=== PATIENT | male | born 1990 | race Two or more races ===

== ENCOUNTER 2019-12-27 15:15 | Outpatient (CLI) | payer OTHER ==
[~2019-12-27 15:15] MED LIST: CIPRO HC OTIC S10 ML OT; IOPHEN DM-100 MG/5 M PO
== END 2019-12-27 15:26 | disposition home or self-care (01) ==
LOC: LAB 15:15
DX: Z20.828 Contact with and (suspected) exposure to other viral communicable diseases (principal)

== ENCOUNTER 2020-12-24 08:00 | Outpatient (CLI) | payer OTHER ==
[2021-01-25] MEDS ORDERED: INTESTINEX680 M1 PO (21:36)
[2021-01-25] MEDS ORDERED: METRONIDAZOLE500 MG PO (21:36)
[2021-01-25] MEDS ORDERED: CIPRO500 MG PO (21:36)
[2021-01-25] MEDS ORDERED: PERCOCET 5-3251 EACH PO (21:39)
== END 2020-12-24 08:30 | disposition home or self-care (01) ==
LOC: PPH VACUNA 08:00
PROVIDERS: ATTEND Emergency Medicine Pediatric Emergency Medicine
DX: Z23 Encounter for immunization (principal)

== ENCOUNTER 2021-01-19 13:22 | Outpatient (CLI) | payer OTHER | END 2021-01-19 14:00 | disposition home or self-care (01) | LOC: LAB 13:22 | PROVIDERS: ATTEND General Practice | DX: D10.1 Benign neoplasm of tongue (principal); Z20.822 Contact with and (suspected) exposure to COVID-19 ==

== ENCOUNTER 2021-01-25 11:44 | Emergency (ER) | payer OTHER ==
[~2021-01-25] VITALS: Ht 162.6 cm; Wt 140.6 kg
[2021-01-25] MEDS ORDERED: INTESTINEX680 M1 PO ×2 (21:36)
[2021-01-25] MEDS ORDERED: CIPRO500 MG PO ×2 (21:36)
[2021-01-25] MEDS ORDERED: METRONIDAZOLE500 MG PO ×2 (21:36)
[2021-01-25] MEDS ORDERED: PERCOCET 5-3251 EACH PO ×2 (21:39)
== END 2021-01-25 21:55 | disposition home or self-care (01) ==
LOC: ER 11:44
DX: K57.32 Diverticulitis of large intestine without perforation or abscess without bleeding (principal); K76.0 Fatty (change of) liver, not elsewhere classified; K58.8 Other irritable bowel syndrome; K21.9 Gastro-esophageal reflux disease without esophagitis; E11.9 Type 2 diabetes mellitus without complications; R10.13 Epigastric pain; G47.33 Obstructive sleep apnea (adult) (pediatric); E66.8 Other obesity

== ENCOUNTER 2021-01-28 08:12 | Inpatient (IN) | payer OTHER ==
[~2021-01-28] VITALS: Ht 160 cm; Wt 310.0 kg
[~2021-01-28 08:12] MED LIST changes: +CIPRO500 MG PO; +INTESTINEX680 M1 PO; +METRONIDAZOLE500 MG PO; +PERCOCET 5-3251 EACH PO
[2021-02-02] MEDS ORDERED: INTESTINEX680 M1 PO (11:55)
[2021-02-02] MEDS ORDERED: PEPCID AC20 MG PO (11:55)
[2021-02-02] MEDS ORDERED: AMOX-CLAV 875-1 EACH PO (11:55)
== END 2021-02-02 13:37 | disposition home or self-care (01) | DRG 392 ==
LOC: ER 08:12 → SURG 17:56
PROVIDERS: ADMIT Internal Medicine; ATTEND Internal Medicine
PROC: 02HV33Z Insertion of Infusion Device into Superior Vena Cava, Percutaneous Approach (ICD-10-PCS; principal; 2021-01-28)
DX: K57.32 Diverticulitis of large intestine without perforation or abscess without bleeding (principal); R10.32 Left lower quadrant pain; E11.9 Type 2 diabetes mellitus without complications; Z79.4 Long term (current) use of insulin; Z20.822 Contact with and (suspected) exposure to COVID-19; G47.33 Obstructive sleep apnea (adult) (pediatric); E66.01 Morbid (severe) obesity due to excess calories; Z99.89 Dependence on other enabling machines and devices

== ENCOUNTER 2021-03-16 19:17 | Outpatient (CLI) | payer OTHER ==
[~2021-03-16 19:17] MED LIST changes: +AMOX-CLAV 875-1 EACH PO; +PEPCID AC20 MG PO
== END 2021-03-16 23:00 | disposition home or self-care (01) ==
LOC: LAB 19:17
DX: Z03.818 Encounter for observation for suspected exposure to other biological agents ruled out (principal)

== ENCOUNTER 2022-03-14 18:26 | Emergency (ER) | payer OTHER ==
[~2022-03-14] VITALS: Ht 160 cm; Wt 141.5 kg
[2022-03-14] MEDS ORDERED: OMEPRAZOLE20 M1 PO (22:10)
[2022-03-14] MEDS ORDERED: METRONIDAZOLE500 MG PO (22:10)
[2022-03-14] MEDS ORDERED: LEVSIN/SL0.125 MG SL (22:10)
[2022-03-14] MEDS ORDERED: CIPRO500 MG PO (22:10)
== END 2022-03-14 22:52 | disposition home or self-care (01) ==
LOC: ER 18:26
DX: K57.32 Diverticulitis of large intestine without perforation or abscess without bleeding (principal)

== ENCOUNTER 2023-02-22 09:01 | Outpatient (CLI) | payer OTHER ==
[2023-02-22 07:57] LABS: HEMATOCRIT 40.9 % (39.0-48.0); MEAN CORPUSCULAR HEMOGLOBIN 21.9 pg (27.00-32.0); MEAN CORPUSCULAR HGB CONC 31.8 g/dl (32.0-36.0); PLATELET COUNT 251 K/uL (150-450); RED BLOOD COUNT 5.95 M/uL (4.00-6.00); RED CELL DISTRIBUTION WIDTH 15.9 % (11.5-14.5)
[2023-02-22 07:58] LABS: MEAN CELL VOLUME 68.7 fL (80.0-100.00)
[2023-02-22 08:52] LABS: ALBUMIN 3.5 gm/dL (3.4-5.0); BILIRUBIN TOTAL 0.4 mg/dL (0.3-1.2); CALCIUM 8.8 mg/dL (8.5-10.1); CHOL HDL RATIO 3.9 (0-5.0); CREATININE SERUM 0.79 mg/dL (0.70-1.30); GFR 112.96; GLOBULINA 4.1 G/DL (2.4-3.5); POTASSIUM 4.19 mEq/L (3.5-5.1); TOTAL PROTEIN 7.6 gm/dL (6.4-8.2)
[~2023-02-22 09:01] MED LIST changes: +LEVSIN/SL0.125 MG SL; +OMEPRAZOLE20 M1 PO
[2023-02-22 11:57] LABS: VITAMIN D3 25 HYDROXY 20.32 ng/ml (30-120)
== END 2023-02-22 13:10 | disposition home or self-care (01) ==
LOC: LAB 09:01
DX: E11.65 Type 2 diabetes mellitus with hyperglycemia (principal); E78.2 Mixed hyperlipidemia; E55.9 Vitamin D deficiency, unspecified; E53.8 Deficiency of other specified B group vitamins

== ENCOUNTER 2024-04-19 12:02 | Outpatient (CLI) | payer OTHER | END 2024-04-19 13:14 | disposition home or self-care (01) | LOC: TOM 12:02 | PROVIDERS: ATTEND Otolaryngology Otology & Neurotology | DX: H93.11 Tinnitus, right ear (principal); H93.12 Tinnitus, left ear ==

== ENCOUNTER 2024-06-09 17:36 | Emergency (ER) | payer OTHER ==
[~2024-06-09] VITALS: Ht 157.5 cm; Wt 136.1 kg
[2024-06-09] MEDS ORDERED: METFORMIN HCL1000 M2 (17:45)
[2024-06-09] MEDS ORDERED: KETOROLAC TROMETHAMINE 60 MG VIAL IM ONE ×2 (18:25→18:30)
[2024-06-09] MEDS ORDERED: CEFTRIAXONE SODIUM 1,000 MG VIAL ONE (18:25)
[2024-06-09] MEDS ORDERED: CEFTRIAXONE SODIUM 1,000 MG VIAL IM ONE (18:30)
== END 2024-06-09 18:48 | disposition home or self-care (01) ==
LOC: ER 17:36
DX: S91.114A Laceration without foreign body of right lesser toe(s) without damage to nail, initial encounter (principal); W45.8XXA Other foreign body or object entering through skin, initial encounter; Y93.89 Activity, other specified; Y92.89 Other specified places as the place of occurrence of the external cause; Y99.9 Unspecified external cause status; E11.9 Type 2 diabetes mellitus without complications; Z79.84 Long term (current) use of oral hypoglycemic drugs

== ENCOUNTER 2024-11-05 02:27 | Emergency (ER) | payer OTHER ==
[~2024-11-05] VITALS: Ht 165.1 cm; Wt 124.7 kg
[~2024-11-05 02:27] MED LIST changes: +METFORMIN HCL1000 M2
[2024-11-05] MEDS ORDERED: KETOROLAC TROMETHAMINE 30 MG VIAL ONE (03:00)
[2024-11-05 03:15] LABS: BASO % 0.5 % (0.1-1.2); EOS # 0.17 (0.04-0.54); EOS % 2.0 % (0.7-7.0); LYMPH # 2.12 (1.18-3.74); LYMPH % 24.5 % (19.3-53.1); MEAN PLATELET VOLUME 9.20 fl (9.4-12.4); MONO # 0.84 (0.24-0.82); MONO % 9.7 % (4.7-12.5); NEUT # 5.49 (1.56-6.13); NEUT % 63.2 % (34.0-71.1); RED CELL DISTRIBUTION WIDTH 16.2 % (11.6-14.4)
[2024-11-05] MEDS ORDERED: KETOROLAC TROMETHAMINE 30 MG VIAL IV ONE ×2 (03:15)
[2024-11-05] MEDS ORDERED: NITROGLYCERIN 0.4 MG TAB.SUBL SL ONE (03:19)
[2024-11-05 03:22] LABS: URINE APPEARANCE Cloudy; URINE BILIRRUBIN Negative (NEGATIVE); URINE BLOOD Negative; URINE COLOR Yellow; URINE GLUCOSE Negative (NEGATIVE); URINE KETONE Trace (NEGATIVE); URINE LEUKOCYTE Negative; URINE NITRATE Negative; URINE PROTEIN Negative (NEGATIVE); URINE UROBILINOGEN 0.2 E.U./dl
[2024-11-05 03:26] LABS: URINE BACTERIA 11.9 uL (0.0-1933); URINE WBC 1.8 uL (0.0-23.2)
[2024-11-05 03:29] LABS: URINE CAST 0.00 uL (0.0-1.40); URINE EPITHELIAL CELLS 0.3 uL (0.0-38.8); URINE RBC 1.9 uL (0.0-20.8)
[2024-11-05 03:34] LABS: ALT/SGPT 25.0 U/L (12-78); AST/SGOT 18.0 U/L (15-37); BILIRUBIN TOTAL 0.47 mg/dL (0.3-1.2); BUN CREA RATIO 11.0 (7.0-25.0); CREATININE SERUM 0.99 mg/dL (0.70-1.30); GFR 86.53; GLOBULINA 4.4 G/DL (2.4-3.5); GLUCOSE FASTING 100.0 mg/dL (65-100); OSMOLALITY SERUM 277.0 MOSM/KG (275-295)
[2024-11-05] MEDS ORDERED: MORPHINE SULFATE 2 MG/ML SYRINGE IV ONE (06:15)
[2024-11-05] MEDS ORDERED: TRAMADOL HCL50 MG PO (09:02)
[2024-11-05] MEDS ORDERED: AMOX-CLAV 875-1 EACH PO (09:25)
== END 2024-11-05 10:33 | disposition home or self-care (01) ==
LOC: ER 02:27
PROVIDERS: Preventive Medicine Public Health & General Preventive Medicine
DX: R10.32 Left lower quadrant pain (principal); K57.32 Diverticulitis of large intestine without perforation or abscess without bleeding; G47.33 Obstructive sleep apnea (adult) (pediatric); E11.9 Type 2 diabetes mellitus without complications; Z79.84 Long term (current) use of oral hypoglycemic drugs; K57.30 Diverticulosis of large intestine without perforation or abscess without bleeding

== ENCOUNTER 2024-11-06 11:35 | Inpatient (IN) | payer OTHER ==
[~2024-11-06] VITALS: Ht 165.1 cm; Wt 122.5 kg
[~2024-11-06 11:35] MED LIST changes: +TRAMADOL HCL50 MG PO
--- NOTE | 2024-11-06 11:47 | NUR ---
PACIENTE MASCULINO, S/V EN PARAMETROS NORMALES, C/C DOLOR ABDOMINAL SE UBICA PARA SER EVALUADO.
[2024-11-06] MEDS ORDERED: FAMOTIDINE/PF 20 MG/2 ML VIAL IV ONE (12:30)
[2024-11-06] MEDS ORDERED: SODIUM CHLORIDE 0.45 % 1,000 ML IV ONE (12:30)
[2024-11-06] MEDS ORDERED: METRONIDAZOLE/SODIUM CHLORIDE 500 MG/100 ML PIGGYBACK IV ONE ×2 (12:30→12:51)
[2024-11-06] MEDS ORDERED: CIPROFLOXACIN IN 5 % DEXTROSE 400 MG/200 ML PIGGYBAG IV ONE ×2 (12:30→12:51)
[2024-11-06] MEDS ORDERED: ONDANSETRON HCL 2 MG/ML VIAL IV ONE (12:30)
[2024-11-06] MEDS ORDERED: MORPHINE SULFATE 2 MG/ML SYRINGE IV ONE ×2 (12:30→18:00)
--- NOTE | 2024-11-06 12:42 | NUR ---
SE ORIENTA PTE SOBRE TX MEDICO EL CUAL REFIERE ENTENDER.SE LE EXTRAEN MUESTRAS BAJO MEDIDAS ASEPTICAS,SE CANALIZA Y SE ADMINISTRA MEDICAMENTOS DEMETRIUS ORDEN MEDICA.
[2024-11-06] MEDS ORDERED: ONDANSETRON HCL 2 MG/ML VIAL ONE (12:51)
[2024-11-06] MEDS ORDERED: FAMOTIDINE/PF 20 MG/2 ML VIAL ONE (12:51)
[2024-11-06 13:00] LABS: BASO % 0.2 % (0.1-1.2); EOS # 0.08 (0.04-0.54); EOS % 0.6 % (0.7-7.0); LYMPH # 0.87 (1.18-3.74); LYMPH % 6.6 % (19.3-53.1); MEAN PLATELET VOLUME 9.20 fl (9.4-12.4); MONO # 0.92 (0.24-0.82); MONO % 7.0 % (4.7-12.5); NEUT # 11.22 (1.56-6.13); NEUT % 85.4 % (34.0-71.1); RED CELL DISTRIBUTION WIDTH 17.6 % (11.6-14.4)
[2024-11-06 13:05] LABS: ERYTHROCYTE SEDIMENTATION RATE 80 mm/hr (0-15)
[2024-11-06 13:42] LABS: ALT/SGPT 23.0 U/L (12-78); AST/SGOT 16.0 U/L (15-37); BILIRUBIN TOTAL 0.56 mg/dL (0.3-1.2); BUN CREA RATIO 9.0 (7.0-25.0); CREATININE SERUM 1.0 mg/dL (0.70-1.30); GFR 85.53; GLOBULINA 4.7 G/DL (2.4-3.5); GLUCOSE FASTING 93.0 mg/dL (65-100); OSMOLALITY SERUM 270.0 MOSM/KG (275-295)
[2024-11-06 14:04] LABS: URINE APPEARANCE Clear; URINE BILIRRUBIN Negative (NEGATIVE); URINE BLOOD Negative; URINE COLOR Yellow; URINE GLUCOSE Negative (NEGATIVE); URINE KETONE 15 (NEGATIVE); URINE LEUKOCYTE Negative; URINE NITRATE Negative; URINE PROTEIN Negative (NEGATIVE); URINE UROBILINOGEN 0.2 E.U./dl
[2024-11-06 14:07] LABS: URINE BACTERIA 4.8 uL (0.0-1933); URINE RBC 2.7 uL (0.0-20.8)
[2024-11-06] MEDS ORDERED: DIATRIZOATE MEGLUMINE, SODIUM 30 ML BOTTLE ONE (15:34)
[2024-11-06 15:51] LABS: URINE CAST 0.00 uL (0.0-1.40); URINE EPITHELIAL CELLS 0.4 uL (0.0-38.8); URINE WBC 1.6 uL (0.0-23.2)
[2024-11-06] MEDS ORDERED: RINGERS SOLUTION,LACTATED 1,000 ML IV STA (16:43)
[2024-11-06] MEDS ORDERED: RINGERS SOLUTION,LACTATED 1,000 ML IV SCH (16:45)
[2024-11-06] MEDS ORDERED: MORPHINE SULFATE 4 MG/ML CARTRIDGE IV PRN (18:00)
[2024-11-06] MEDS ORDERED: INSULIN LISPRO 1,000 UNIT/10 ML UNITS SUBCUTANEO PRN (18:00)
[2024-11-06] MEDS ORDERED: DEXTROSE 50 % IN WATER 0.5 G/ML DISP.SYRIN IV PRN (18:00)
[2024-11-06] MEDS ORDERED: DEXTROSE 50 % IN WATER 0.5 G/ML VIAL IV PRN (19:30)
[2024-11-07 01:16] VITALS: BP 105/72; O2SAT 97
[2024-11-07] MEDS ORDERED: FAMOTIDINE/PF 20 MG in 0.9 % SODIUM CHLORIDE 8 ML IV PUSH SCH (05:00)
[2024-11-07 06:45] LABS: BASO % 0.2 % (0.1-1.2); EOS # 0.08 (0.04-0.54); EOS % 0.9 % (0.7-7.0); LYMPH # 1.64 (1.18-3.74); LYMPH % 17.7 % (19.3-53.1); MEAN PLATELET VOLUME 9.40 fl (9.4-12.4); MONO # 1.13 (0.24-0.82); NEUT # 6.37 (1.56-6.13); NEUT % 68.8 % (34.0-71.1); RED CELL DISTRIBUTION WIDTH 15.8 % (11.6-14.4)
[2024-11-07 06:55] LABS: INR 1.15
[2024-11-07 07:03] LABS: MONO % 12.2 % (4.7-12.5)
[2024-11-07 07:12] LABS: ALT/SGPT 17.0 U/L (12-78); AST/SGOT 10.0 U/L (15-37); BILIRUBIN TOTAL 0.74 mg/dL (0.3-1.2); BUN CREA RATIO 7.0 (7.0-25.0); CREATININE SERUM 0.96 mg/dL (0.70-1.30); GFR 89.66; GLOBULINA 3.6 G/DL (2.4-3.5); GLUCOSE FASTING 83.0 mg/dL (65-100); OSMOLALITY SERUM 269.0 MOSM/KG (275-295)
[2024-11-07] MEDS ORDERED: ENOXAPARIN SODIUM 40 MG/0.4 ML SYRINGE SUBCUTANEO SCH ×2 (09:00)
[2024-11-07] MEDS ORDERED: CEFTRIAXONE SODIUM 2,000 MG in 0.9 % SODIUM CHLORIDE 100 ML IV SCH (09:00)
[2024-11-07 10:55] VITALS: BP 107/70; O2SAT 97
[2024-11-07] MEDS ORDERED: AA 4.25%/CAL/LYTES/DEXT 5% 1,000 ML PERIFERAL SCH (17:00)
[2024-11-07 17:48] LABS: CHOL HDL RATIO 2.8 (0-5.0); HDL 50.0 mg/dl (40-60); LDL 74.0 mg/dl (0-130); VLDL 14.0 (0-39)
[2024-11-07 19:20] VITALS: BP 138/84; O2SAT 100
[2024-11-08 02:42] VITALS: BP 113/75; O2SAT 99
[2024-11-08 08:43] VITALS: BP 125/69; O2SAT 99
[2024-11-08] MEDS ORDERED: FAMOTIDINE/PF 20 MG/2 ML VIAL ONE (15:59)
[2024-11-08 17:32] LABS: BASO % 0.3 % (0.1-1.2); EOS # 0.18 (0.04-0.54); EOS % 2.9 % (0.7-7.0); LYMPH # 1.42 (1.18-3.74); LYMPH % 22.9 % (19.3-53.1); MEAN PLATELET VOLUME 9.30 fl (9.4-12.4); MONO # 0.47 (0.24-0.82); MONO % 7.6 % (4.7-12.5); NEUT # 4.09 (1.56-6.13); NEUT % 66.1 % (34.0-71.1); RED CELL DISTRIBUTION WIDTH 16.1 % (11.6-14.4)
[2024-11-08 18:14] LABS: ALT/SGPT 17.0 U/L (12-78); AST/SGOT 17.0 U/L (15-37); BILIRUBIN TOTAL 0.49 mg/dL (0.3-1.2); BUN CREA RATIO 10.0 (7.0-25.0); CREATININE SERUM 0.81 mg/dL (0.70-1.30); GFR 109.08; GLOBULINA 3.8 G/DL (2.4-3.5); GLUCOSE FASTING 97.0 mg/dL (65-100); OSMOLALITY SERUM 272.0 MOSM/KG (275-295)
[2024-11-08 20:25] VITALS: BP 114/76; O2SAT 100
[2024-11-08] MEDS ORDERED: MORPHINE SULFATE 4 MG/ML CARTRIDGE IV PRN (22:45)
[2024-11-09 01:51] VITALS: BP 111/69; O2SAT 98
[2024-11-09 09:20] VITALS: BP 130/64
[2024-11-09 10:23] LABS: BASO % 0.4 % (0.1-1.2); EOS # 0.22 (0.04-0.54); EOS % 4.1 % (0.7-7.0); LYMPH # 1.25 (1.18-3.74); LYMPH % 23.5 % (19.3-53.1); MEAN PLATELET VOLUME 9.50 fl (9.4-12.4); MONO # 0.56 (0.24-0.82); MONO % 10.5 % (4.7-12.5); NEUT # 3.25 (1.56-6.13); NEUT % 61.3 % (34.0-71.1); RED CELL DISTRIBUTION WIDTH 15.4 % (11.6-14.4)
[2024-11-09 10:31] LABS: ALT/SGPT 17.0 U/L (12-78); AST/SGOT 13.0 U/L (15-37); BILIRUBIN TOTAL 0.49 mg/dL (0.3-1.2); BUN CREA RATIO 10.0 (7.0-25.0); CREATININE SERUM 0.69 mg/dL (0.70-1.30); GFR 131.25; GLOBULINA 3.6 G/DL (2.4-3.5); GLUCOSE FASTING 83.0 mg/dL (65-100); OSMOLALITY SERUM 275.0 MOSM/KG (275-295)
[2024-11-09] MEDS ORDERED: FAMOTIDINE/PF 20 MG/2 ML VIAL ONE (16:12)
[2024-11-09 17:59] VITALS: BP 117/75
[2024-11-10 00:48] VITALS: BP 135/72
[2024-11-10 09:23] VITALS: BP 124/64
[2024-11-10 13:34] LABS: BASO % 0.4 % (0.1-1.2); EOS # 0.12 (0.04-0.54); EOS % 2.3 % (0.7-7.0); LYMPH # 1.23 (1.18-3.74); LYMPH % 23.7 % (19.3-53.1); MEAN PLATELET VOLUME 9.90 fl (9.4-12.4); MONO # 0.27 (0.24-0.82); MONO % 5.2 % (4.7-12.5); NEUT # 3.53 (1.56-6.13); NEUT % 68.2 % (34.0-71.1); RED CELL DISTRIBUTION WIDTH 16.1 % (11.6-14.4)
[2024-11-10 14:18] LABS: ALT/SGPT 25.0 U/L (12-78); AST/SGOT 30.0 U/L (15-37); BILIRUBIN TOTAL 0.36 mg/dL (0.3-1.2); BUN CREA RATIO 7.0 (7.0-25.0); CREATININE SERUM 0.83 mg/dL (0.70-1.30); GFR 106.05; GLOBULINA 3.9 G/DL (2.4-3.5); GLUCOSE FASTING 109.0 mg/dL (65-100); OSMOLALITY SERUM 276.0 MOSM/KG (275-295)
[2024-11-10] MEDS ORDERED: FAMOTIDINE/PF 20 MG/2 ML VIAL ONE (16:19)
[2024-11-10 18:30] VITALS: BP 113/71
[2024-11-11 01:01] VITALS: BP 120/77; O2SAT 99
[2024-11-11 08:00] VITALS: BP 125/77; O2SAT 100
[2024-11-11] MEDS ORDERED: LACTOBACILLUS ACIDOPHILUS 1 CAP CAP PO SCH (09:00)
[2024-11-11] MEDS ORDERED: IRON/V.C/V.B12/FOLIC A/VIT. E 1 CAPL CAPLET PO SCH (11:25)
[2024-11-11 11:45] LABS: BASO % 0.3 % (0.1-1.2); EOS # 0.21 (0.04-0.54); EOS % 2.9 % (0.7-7.0); LYMPH # 1.84 (1.18-3.74); LYMPH % 25.4 % (19.3-53.1); MEAN PLATELET VOLUME 9.00 fl (9.4-12.4); MONO # 0.69 (0.24-0.82); MONO % 9.5 % (4.7-12.5); NEUT # 4.47 (1.56-6.13); NEUT % 61.8 % (34.0-71.1); RED CELL DISTRIBUTION WIDTH 15.6 % (11.6-14.4)
[2024-11-11 12:19] LABS: INR 1.15
[2024-11-11 12:51] LABS: ALT/SGPT 34.0 U/L (12-78); AST/SGOT 32.0 U/L (15-37); BILIRUBIN TOTAL 0.33 mg/dL (0.3-1.2); BILIRUBIN,CONJUGATED 0.11 mg/dL (0.0-0.2); CHOL HDL RATIO 4.2 (0-5.0); HDL 31.0 mg/dl (40-60); LDL 83.0 mg/dl (0-130); VLDL 16.0 (0-39)
[2024-11-11 12:52] LABS: ALT/SGPT 36.0 U/L (12-78); AST/SGOT 31.0 U/L (15-37); BILIRUBIN TOTAL 0.34 mg/dL (0.3-1.2); BUN CREA RATIO 9.0 (7.0-25.0); CREATININE SERUM 0.76 mg/dL (0.70-1.30); GFR 117.4; GLOBULINA 4.0 G/DL (2.4-3.5); GLUCOSE FASTING 89.0 mg/dL (65-100); OSMOLALITY SERUM 271.0 MOSM/KG (275-295)
[2024-11-11 12:57] LABS: UREA CLEARANCE 84.1 ML/MIN
[2024-11-11 20:01] VITALS: BP 135/82
[2024-11-12 02:11] VITALS: BP 106/65; O2SAT 98
[2024-11-12 08:43] VITALS: BP 126/84
[2024-11-12] MEDS ORDERED: INTESTINEX680 M1 PO (12:07)
[2024-11-12] MEDS ORDERED: AMOX-CLAV 875-1 EAC1 PO (12:07)
[2024-11-12] MEDS ORDERED: LEVSIN/SL0.125 MG SL (12:08)
[2024-11-12] MEDS ORDERED: TRAM1TAB98 PO (12:08)
== END 2024-11-12 12:42 | disposition home or self-care (01) | DRG 392 ==
LOC: ER 11:35 → EMR PED 11:38 → ER 11:38 → SURH 18:24 → MEDI 18:24 → SURH 19:54 → MEDI 11-07 16:00
PROVIDERS: General Practice; Internal Medicine; Surgery; ADMIT Internal Medicine; ATTEND Internal Medicine
PROC: BW21YZZ Computerized Tomography (CT Scan) of Abdomen and Pelvis using Other Contrast (ICD-10-PCS; principal; 2024-11-06)
PROC: 02HV33Z Insertion of Infusion Device into Superior Vena Cava, Percutaneous Approach (ICD-10-PCS; 2024-11-07)
PROC: B54MZZZ Ultrasonography of Right Upper Extremity Veins (ICD-10-PCS; 2024-11-08)
DX: K57.32 Diverticulitis of large intestine without perforation or abscess without bleeding (principal); K52.9 Noninfective gastroenteritis and colitis, unspecified; E11.649 Type 2 diabetes mellitus with hypoglycemia without coma; Z79.4 Long term (current) use of insulin; G47.33 Obstructive sleep apnea (adult) (pediatric)